=== PATIENT | male | born 2000 | race Caucasian/White ===

== ENCOUNTER → 2021-06-03 | Outpatient (REF) | payer OTHER ==
[2021-06-03 21:36] LABS: GC DNA AMPLIFICATION NEGATIVE (NEGATIVE)
== END ==
LOC: M LAB REF 19:11
PROVIDERS: ATTEND Physician Assistant
DX: N50.819 Testicular pain, unspecified (principal)

== ENCOUNTER → 2021-06-07 | Outpatient (CLI) | payer OTHER | LOC: M RAD 13:38 | PROVIDERS: ATTEND Physician Assistant | DX: N43.40 Spermatocele of epididymis, unspecified (principal); N50.819 Testicular pain, unspecified ==

== ENCOUNTER 2021-07-02 12:05 | Emergency (ER) | payer OTHER ==
[~2021-07-02] VITALS: Ht 185.4 cm; Wt 81.8 kg
[2021-07-02] MEDS ORDERED: diazePAM 5MG TABLET PO ONE ×2 (17:00→18:10)
[2021-07-02] MEDS ORDERED: KETOROLAC 60MG 2ML VIAL IM ONE (17:00)
[2021-07-02] MEDS ORDERED: LIDOCAINE 5% (LIDODERM) PATCH TD ONE (17:00)
[2021-07-02] MEDS ORDERED: NAPR-837 PO (17:58)
[2021-07-02] MEDS ORDERED: METH-1165 PO (17:58)
[2021-07-02] MEDS ORDERED: LIDO1PAD TOP (17:58)
[2021-07-02 18:07] VITALS: BP 110/60
[2021-07-03] MEDS ORDERED: **NOTE PATIENT COMMENT** MISC XX ONE (05:00)
== END 2021-07-02 18:08 | disposition home or self-care (01) ==
LOC: M ED 12:05
DX: M54.50 Low back pain, unspecified (principal); F17.200 Nicotine dependence, unspecified, uncomplicated
CPT/HCPCS: 72110; 96372; 99283; J1885